=== PATIENT | female | born 1960 | race Caucasian/White ===

== ENCOUNTER 2016-07-04 00:32 | Inpatient (IN) | payer SELFPAY ==
[~2016-07-04] VITALS: Ht 160 cm; Wt 83.2 kg
[2016-07-04] VITALS (94 sets, daily range): BP systolic 156–175; BP diastolic 90; PULSE 74–90; TEMP 97.5; O2SAT 80–100
[2016-07-04 00:57] LABS: BASO # 0.1 (0.0-0.2); BASO % 0.7 % (0.0-2.0); EOS # 0.1 (0.0-0.7); EOS % 1.5 % (0-4.0); GRAN # 3.8 (1.4-6.5); GRAN % 52.8 % (42.2-75.2); HEMOGLOBIN 14.8 g/dl (12.5-16.0); LYMPH # 2.9 (1.2-3.4); LYMPH % 39.8 % (20.0-51.0); MEAN CELL VOLUME 90 fl (80.0-100.0); MEAN CORPUSCULAR HEMOGLOBIN 32 pg (27.0-31.0); MEAN CORPUSCULAR HGB CONC 35 g/dl (33.0-37.0); MEAN PLATELET VOLUME 10.3 fl (7.4-10.4); MONO # 0.4 (0.1-0.6); MONO % 4.9 % (1.7-9.3); PLATELET COUNT 248 K/mm3 (130-400); RED BLOOD COUNT 4.69 M/mm3 (4.10-5.30); REDCELL DISTRIBUTION WIDTH-CV 11.7 % (11.5-14.5); WHITE BLOOD COUNT 7.2 K/mm3 (4.8-10.8)
[2016-07-04 01:08] LABS: PROTHROMBIN TIME 10.6 SECONDS (9.7-12.8)
[2016-07-04 01:11] LABS: PARTIAL THROMBOPLASTIN TIME 31.1 SECONDS (26.0-37.0)
[2016-07-04 01:12] LABS: ADJUSTED CALCIUM 8.8 mg/dL (8.4-10.2); ALBUMIN 4.7 gm/dL (3.5-5.0); BILIRUBIN,TOTAL 0.8 mg/dL (0.0-1.0); CALCIUM 9.4 mg/dL (8.4-10.2); CREATININE, serum 0.83 mg/dL (0.52-1.25)
[2016-07-04 01:13] LABS: POTASSIUM 2.9 mmol/L (3.4-5.0)
[2016-07-04 01:24] LABS: TROPONIN-I 0.102 ng/mL (0.000-0.034)
[2016-07-04] MEDS ORDERED: FLEXERIL 1010 MG/TAB PO (02:10)
[2016-07-04] MEDS ORDERED: NORVASC2.5 MG PO (02:10)
[2016-07-04] MEDS ORDERED: HCTZ 25MG TAB25 MG PO (02:11)
[2016-07-04 02:56] LABS: MAGNESIUM 2.4 mg/dL (1.6-2.3)
[2016-07-04] MEDS ORDERED: IBU400 MG PO (05:05)
== END 2016-07-04 06:05 | disposition short-term general hospital (02) | DRG 311 ==
LOC: COL.ER 00:32 → ICU 01:34
PROVIDERS: Emergency Medicine
DX: I20.0 Unstable angina (principal); I10 Essential (primary) hypertension; F41.9 Anxiety disorder, unspecified; E87.6 Hypokalemia
CPT/HCPCS: J0360; J1644; J2060; J3480; J7030; J7040

== ENCOUNTER 2016-07-19 14:11 | Outpatient (RCR) | payer SELFPAY ==
[~2016-07-19 14:11] MED LIST: FLEXERIL 1010 MG/TAB PO; HCTZ 25MG TAB25 MG PO; IBU400 MG PO; NORVASC2.5 MG PO
== END 2016-08-25 11:43 | disposition home or self-care (01) ==
LOC: COL.CR 14:11
DX: I21.4 Non-ST elevation (NSTEMI) myocardial infarction (principal); I10 Essential (primary) hypertension